=== PATIENT | male | born 1990 | race African-American/Black ===

== ENCOUNTER 2016-11-29 07:27 | Emergency (ER) | payer SELFPAY ==
[~2016-11-29] VITALS: Ht 175.3 cm; Wt 70.0 kg
[~2016-11-29 07:27] MED LIST: BENT20TA PO; ZOFR4TAB3 SL
[2016-11-29 07:28] VITALS: BP 130/82; PULSE 82; RESP 20; TEMP 98.7; O2SAT 100
[2016-11-29] MEDS ORDERED: SODIUM CHLOR 0.9% 1000 ML INJ 1,000 ML IV SCH (07:46)
--- NOTE | 2016-11-29 07:48 | PD ---
HPI Chief Complaint: GI Complaint Time Seen by Provider: 07:46 Travel History International Travel<30 days: No Contact w/Intl Traveler<30days: No Traveled to known affect area: No History of Present Illness HPI This is a 26-year-old male who presents to the emergency department with nausea and vomiting present for moderate severity, worse this morning. He says he vomited 5 times this morning. He says he started to feel tingly in his lips and was worried he might be having a stroke. He denies any abdominal pain, fevers, chills, diarrhea or dysuria. He does say he smokes marijuana every day. He says this is happened to him 3 times in the past year. He did try to take a hot shower this morning that at this point that's not helping anymore. PFSH Past Medical History Hx Anticoagulant Therapy: No Blood Disorders: No Anxiety: No Depression: No Cancer: No Cardiovascular Problems: No Chemotherapy: No Cerebrovascular Accident: No Diabetes: No Diminished Hearing: No Endocrine: No Gastrointestinal Disorders: Yes (chronic stomach problems) GERD: Yes Genitourinary: No Immune Disorder: No Implanted Vascular Access Dvce: No Musculoskeletal: No Neurologic: No Psychiatric: No Reproductive: No Respiratory: No Immunizations Current: Yes Sickle Cell Disease: No Influenza Vaccination: No Past Surgical History Surgical History: No Previous Surgery Other Surgery: No Social History Alcohol Use: No Tobacco Use: No Substance Use: Yes (marijuana) Allergies-Medications (Allergen,Severity, Reaction): Coded Allergies: No Known Allergies (Verified , 11/29/16) Reported Meds & Prescriptions Reported Meds & Active Scripts Active No Active Prescriptions or Reported Medications Review of Systems Except as stated in HPI: all other systems reviewed are Neg Physical Exam Narrative GENERAL:Well appearing, no acute distress SKIN: Focused skin assessment warm and dry. HEAD: Atraumatic. Normocephalic. EYES: Pupils equal and round. No injection or drainage. ENT: Moist mucous membranes NECK: Trachea midline. CARDIOVASCULAR: Regular rate and rhythm. No murmur appreciated. RESPIRATORY: Clear to auscultation. Breath sounds equal bilaterally. GASTROINTESTINAL: Abdomen soft, non-tender, nondistended. MUSCULOSKELETAL: No obvious deformities. NEUROLOGICAL: Awake and alert. No obvious cranial nerve deficits. Moving all extremities. No dysarthria or aphasia. No upper extremity ataxia. Normal visual dimas. PSYCHIATRIC: Appropriate mood and affect; insight and judgment normal. Data Data Last Documented VS Vital Signs Date Time Temp Pulse Resp B/P Pulse Ox O2 Delivery O2 Flow Rate FiO2 11/29/16 07:50 18 99 Room Air 11/29/16 07:28 98.7 82 130/82 Orders Complete Blood Count With Diff (11/29/16 07:46) Comprehensive Metabolic Panel (11/29/16 07:46) Lipase (11/29/16 07:46) Iv Access Insert/Monitor (11/29/16 07:46) Ecg Monitoring (11/29/16 07:46) Oximetry (11/29/16 07:46) Ondansetron Inj (Zofran Inj) (11/29/16 08:00) Sodium Chlor 0.9% 1000 Ml Inj (Ns 1000 M (11/29/16 07:46) Sodium Chloride 0.9% Flush (Ns Flush) (11/29/16 08:00) Labs Laboratory Tests Test 11/29/16 07:00 White Blood Count 14.6 TH/MM3 Red Blood Count 5.69 MIL/MM3 Hemoglobin 15.7 GM/DL Hematocrit 46.1 % Mean Corpuscular Volume 81.0 FL Mean Corpuscular Hemoglobin 27.6 PG Mean Corpuscular Hemoglobin 34.1 % Concent Red Cell Distribution Width 14.4 % Platelet Count 238 TH/MM3 Mean Platelet Volume 8.6 FL Neutrophils (%) (Auto) 59.7 % Lymphocytes (%) (Auto) 27.1 % Monocytes (%) (Auto) 12.4 % Eosinophils (%) (Auto) 0.4 % Basophils (%) (Auto) 0.4 % Neutrophils # (Auto) 8.7 TH/MM3 Lymphocytes # (Auto) 4.0 TH/MM3 Monocytes # (Auto) 1.8 TH/MM3 Eosinophils # (Auto) 0.1 TH/MM3 Basophils # (Auto) 0.1 TH/MM3 CBC Comment DIFF FINAL Differential Comment Sodium Level 134 MEQ/L Potassium Level 3.5 MEQ/L Chloride Level 95 MEQ/L Carbon Dioxide Level 26.8 MEQ/L Anion Gap 12 MEQ/L Blood Urea Nitrogen 15 MG/DL Creatinine 0.98 MG/DL Estimat Glomerular Filtration 113 ML/MIN Rate Random Glucose 110 MG/DL Calcium Level 9.5 MG/DL Total Bilirubin 1.3 MG/DL Aspartate Amino Transf 35 U/L (AST/SGOT) Alanine Aminotransferase 54 U/L (ALT/SGPT) Alkaline Phosphatase 52 U/L Total Protein 8.6 GM/DL Albumin 4.6 GM/DL Lipase 171 U/L MDM Medical Decision Making Medical Screen Exam Complete: Yes Emergency Medical Condition: Yes Interpretation(s) afebrile, no tachycardia, normotensive leukocytosis Total bilirubin is mildly elevated similar to prior Differential Diagnosis Gastroenteritis, cyclic vomiting syndrome, cannabis hyperemesis syndrome, cholelithiasis, cholecystitis, appendicitis Narrative Course This is a 26-year-old male who presents to the emergency department with nausea and vomiting that's been going on for several days. She has no abdominal pain. He is afebrile. He was placed on a monitor and an IV was established. He does have a mild leukocytosis which is similar to labs in the past. He's had CT imaging and ultrasound imaging in the past all of which is been unremarkable. I doubt there is a surgical etiology of his symptoms given he has no abdominal pain. I suspect is cannabis hyperemesis syndrome given he smokes marijuana daily and this is a recurrent problem. Patient feels better after Zofran and IV hydration. He'll be discharged home. Diagnosis Primary Impression: Cannabinoid hyperemesis syndrome Patient Instructions: General Instructions Additional Instructions: If you develop severe or worsening abdominal pain, fever>100.4, persistent vomiting or inability to eat or drink return to the emergency department immediately. Follow up with your primary care physician in 1-2 days for a check-up. Med/Other Pt SpecificInfo: Prescription(s) given Scripts Ondansetron Odt (Zofran Odt)4 Mg Tab4 Mg SL Q6HR PRN (Nausea/Vomiting) #15 TAB Prov:Kourtney Justice MD 11/29/16 Disposition: DISCHARGE HOME Condition: Stable Kourtney Justice MD Nov 29, 2016 07:48
[2016-11-29 07:50] VITALS: RESP 18; O2SAT 99
[2016-11-29] MEDS ORDERED: SODIUM CHLORIDE 0.9% FLUSH 10 ML FLUSH IV FLUSH PRN (08:00)
[2016-11-29] MEDS ORDERED: ONDANSETRON HCL 4 MG/2 ML VIAL IVP ONE (08:00)
[2016-11-29 08:13] LABS: AUTOMATED NEUTROPHIL # 8.7 TH/MM3 (1.8-7.7); BASOPHIL # 0.1 TH/MM3 (0-0.2); BASOPHIL % 0.4 % (0.0-2.0); EOSINOPHIL # 0.1 TH/MM3 (0-0.4); EOSINOPHIL % 0.4 % (0.0-4.0); HEMATOCRIT 46.1 % (39.0-51.0); HEMO FLAGS DIFF FINAL; LYMPH % 27.1 % (9.0-44.0); MEAN CORPUSCULAR HEMOGLOBIN 27.6 PG (27.0-34.0); MEAN CORPUSCULAR HGB CONC 34.1 % (32.0-36.0); MONO % 12.4 % (0.0-8.0); NEUT % 59.7 % (16.0-70.0); PLATELET COUNT 238 TH/MM3 (150-450); RED BLOOD COUNT 5.69 MIL/MM3 (4.50-5.90); RED CELL DISTRIBUTION WIDTH 14.4 % (11.6-17.2); WHITE BLOOD COUNT 14.6 TH/MM3 (4.0-11.0)
[2016-11-29 08:33] LABS: ANION GAP 12 MEQ/L (5-15); AST (GOT) 35 U/L (15-37); BICARBONATE 26.8 MEQ/L (21.0-32.0); BLOOD UREA NITROGEN 15 MG/DL (7-18); CHLORIDE 95 MEQ/L (98-107); GLOMERULAR FILTRATION RATE 113 ML/MIN (>89); POTASSIUM 3.5 MEQ/L (3.5-5.1); SODIUM (NA) 134 MEQ/L (136-145)
[2016-11-29 08:36] LABS: ALKALINE PHOSPHATASE 52 U/L (45-117); ALT (GPT) 54 U/L (12-78); TOTAL BILIRUBIN ADULT 1.3 MG/DL (0.2-1.0)
[2016-11-29] MEDS ORDERED: ZOFR4TAB3 SL (08:50)
[2016-11-29 09:29] VITALS: BP 122/77; TEMP 97.8
== END 2016-11-29 09:15 | disposition home or self-care (01) ==
LOC: NEPC 07:27
DX: R11.10 Vomiting, unspecified (principal)
CPT/HCPCS: 80053; 83690; 85025; 96361; 96374; 99284; J2405; J7030

== ENCOUNTER 2017-10-24 11:34 | Inpatient (IN) | payer OTHER ==
[~2017-10-24 11:34] MED LIST changes: -BENT20TA PO
[2017-10-24] MEDS ORDERED: PROPOFOL 200 MG/20 ML AMP IV ONE (12:00)
[2017-10-24] MEDS ORDERED: ePHEDrine/NS 25 MG/5 ML SYRINGE IV ONE (12:00)
[2017-10-24] MEDS ORDERED: LIDOCAINE HCL 1% PF 5 ML SYRINGE OTHER ONE (12:00)
[2017-10-24] MEDS ORDERED: ONDANSETRON HCL 4 MG/2 ML VIAL IV ONE (12:00)
[2017-10-24] MEDS ORDERED: DEXAMETHASONE SOD PHOS 4 MG/ML VIAL IV ONE (12:00)
[2017-10-24 12:16] VITALS: BP 135/65; PULSE 82; RESP 16; TEMP 98.5; O2SAT 99
[2017-10-24] MEDS ORDERED: IBUPROFEN 800 MG TAB PO ONE (12:45)
[2017-10-24] MEDS ORDERED: ACETAMINOPHEN/HYDROcodone 325 MG/5 MG TAB PO ONE (12:45)
--- NOTE | 2017-10-24 12:45 | PD ---
HPI Chief Complaint: Injury Time Seen by Provider: 12:36 Travel History International Travel<30 days: No Contact w/Intl Traveler<30days: No Traveled to known affect area: No History of Present Illness HPI Patient comes emergency department complaining of puncture wound that occurred shortly prior to arrival. 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 Patient denies doing anything for this prior to coming to the emergency department. Patient describe burning throbbing pain around site of the puncture wound without radiation. He denies any numbness or tingling. Pain is worse palpation trying to walk. Denies anything making the pain better. Patient reports he drank a bottle Gatorade prior to coming to the emergency department. Denies eating or drinking anything else today. PFSH Past Medical History Hx Anticoagulant Therapy: No Blood Disorders: No Anxiety: No Depression: No Cancer: No Cardiovascular Problems: No Chemotherapy: No Cerebrovascular Accident: No Diabetes: No Diminished Hearing: No Endocrine: No Gastrointestinal Disorders: Yes (chronic stomach problems) GERD: Yes Genitourinary: No Immune Disorder: No Implanted Vascular Access Dvce: No Musculoskeletal: No Neurologic: No Psychiatric: No Reproductive: No Respiratory: No Immunizations Current: Yes Sickle Cell Disease: No Past Surgical History Other Surgery: No Social History Alcohol Use: No Tobacco Use: No Substance Use: Yes (marijuana) Allergies-Medications (Allergen,Severity, Reaction): Coded Allergies: No Known Allergies (Verified , 11/29/16) Reported Meds & Prescriptions Reported Meds & Active Scripts Active Zofran Odt (Ondansetron Odt) 4 Mg Tab 4 Mg SL Q6HR PRN Review of Systems Except as stated in HPI: all other systems reviewed are Neg Physical Exam Narrative GENERAL: Well-developed, well nourished, in no acute distress, and non-ill appearing. SKIN: Patient has a 2 cm x 1 cm puncture wound is approximately half centimeter in depth over the left anterior tibia approximately mid shaft. It is tender to palpation. No crepitus. HEAD: Atraumatic. Normocephalic. EYES: Pupils equal and round. EOMI. No scleral icterus. No injection or drainage. ENT: No nasal bleeding or discharge. Mucous membranes pink and moist. NECK: Trachea midline. Supple. No nuclear rigidity. CARDIOVASCULAR: Regular rate and rhythm. No murmur appreciated. Dorsal pulses 2+, intact, equal bilaterally. Capillary refill less than 2 seconds. RESPIRATORY: No accessory muscle use. No respiratory distress. Clear to auscultation. Breath sounds equal bilaterally. MUSCULOSKELETAL: No obvious deformities. No clubbing. No cyanosis. No edema. Full range of motion. Ankle: Neagative anterior draw and Lopez test. Negative Mahad's sign. No laxity noted with passive inversion and eversion of BL ankles. Negative squeeze test. Pulses equal BL distal to injury. Capillary refill less than 2 seconds distal to injury and equal BL. Sensation equal BL 1st web space. FROM of toes distal to injury and equal BL. NV intact distal to injury and equal BL. Dorsal pulses equal BL. NEUROLOGICAL: Awake and alert. No obvious cranial nerve deficits. Motor grossly within normal limits. Normal speech. PSYCHIATRIC: Appropriate mood and affect; insight and judgment normal. Data Data Last Documented VS Vital Signs Date Time Temp Pulse Resp B/P (MAP) Pulse Ox O2 Delivery O2 Flow Rate FiO2 10/24/17 12:16 98.5 82 16 135/65 (88) 99 Orders Orders Tibia/Fibula (Ap/Lat) (10/24/17 ) Ibuprofen (Motrin) (10/24/17 12:45) Acetamin-Hydrocod 325-5 Mg ([place] 5-325 (10/24/17 12:45) Basic Metabolic Panel (Bmp) (10/24/17 13:09) Complete Blood Count With Diff (10/24/17 13:09) Iv Access Insert/Monitor (10/24/17 13:09) Ecg Monitoring (10/24/17 13:09) Oximetry (10/24/17 13:09) Sodium Chloride 0.9% Flush (Ns Flush) (10/24/17 13:15) Cefazolin 2 Gm Premix (Ancef 2 Gm Premix (10/24/17 13:15) Admit Order (Ed Use Only) (10/24/17 ) Vital Signs (Adult) Q4H (10/24/17 13:25) Diet Npo (10/24/17 Lunch) Activity Bed Rest (10/24/17 13:25) Notify Dr: Other (10/24/17 13:25) [facility] Medical Decision Making Medical Screen Exam Complete: Yes Emergency Medical Condition: Yes Interpretation(s) Last Impressions Tibia/Fibula X-Ray 10/24/17 0000 Signed Impressions: Service Date/Time: October 12:52 - CONCLUSION: Nondisplaced fracture through the distal mid diaphysis of the tibia. Getachew Wisdom MD Differential Diagnosis Fracture, sprain, dislocation, foreign body, puncture wound Narrative Course Patient was seen and examined. Patient is given Lortab for pain. X-rays were ordered. Upon reviewing x-ray initial laboratory studies were ordered and patient was given 2 g of Ancef IV. A call was placed to orthopedic. Discussed patient with orthopedics, who is agreeable to admit the patient for surgery later today. Discussed patient with Dr. Lyle, who is in agreement with plan of care and disposition. Discussed all findings and plan of care with patient is agreeable for admission. Patient was placed in this splint and dressing was placed by the it technical support specialist. Physician Communication Physician Communication [phone] Canales, orthopedic on-call, who recommends a patient admitted to his service for surgery later today. Diagnosis Primary Impression: Open tibial fracture Qualified Codes: S82.225C - Nondisplaced transverse fracture of shaft of left tibia, initial encounter for open fracture type IIIA, IIIB, or IIIC Admitting Information Admitting Physician Requests: Admit Condition: Stable Phi Nascimento Oct 24, 2017 12:45
[2017-10-24] MEDS ORDERED: SODIUM CHLORIDE 0.9% FLUSH 10 ML FLUSH IV FLUSH PRN ×2 (13:15→18:30)
[2017-10-24] MEDS ORDERED: ceFAZolin 2 GM PREMIX 50 ML IV ONE (13:15)
--- NOTE | 2017-10-24 13:25 | RADRPT ---
EXAM DATE/TIME: 10/24/2017 12:52 [facility] COMPARISON: No previous studies available for comparison. INDICATIONS : Left lower leg hit with a piece of steel rebar at job site this morning. Pain approximately mid way between knee and ankle MEDICAL HISTORY : None. SURGICAL HISTORY : None. ENCOUNTER: Initial ACUITY: 1 day PAIN SCORE: 10/10 LOCATION: Left tib/fib FINDINGS: Two view examination of the left tibia demonstrates a complex but nondisplaced fracture through the d istal mid diaphysis of the tibia. CONCLUSION: Nondisplaced fracture through the distal mid diaphysis of the tibia. Getachew Wisdom MD on October 24, 2017 at 13:22 Board Certified Radiologist. This report was verified electronically.
[2017-10-24 13:41] LABS: AUTOMATED NEUTROPHIL # 7.3 TH/MM3 (1.8-7.7); BASOPHIL % 0.3 % (0.0-2.0); EOSINOPHIL # 0.1 TH/MM3 (0-0.4); EOSINOPHIL % 0.6 % (0.0-4.0); HEMATOCRIT 44.2 % (39.0-51.0); HEMOGLOBIN 15.8 GM/DL (13.0-17.0); LYMPH % 15.5 % (9.0-44.0); LYMPHOCYTE # 1.5 TH/MM3 (1.0-4.8); MEAN CELL VOLUME 83.3 FL (80.0-100.0); MEAN CORPUSCULAR HEMOGLOBIN 29.8 PG (27.0-34.0); MEAN CORPUSCULAR HGB CONC 35.8 % (32.0-36.0); MEAN PLATELET VOLUME 8.4 FL (7.0-11.0); MONO % 8.7 % (0.0-8.0); MONOCYTE # 0.8 TH/MM3 (0-0.9); NEUT % 74.9 % (16.0-70.0); PLATELET COUNT 196 TH/MM3 (150-450); RED CELL DISTRIBUTION WIDTH 14.6 % (11.6-17.2); WHITE BLOOD COUNT 9.7 TH/MM3 (4.0-11.0)
[2017-10-24 14:56] VITALS: BP 155/66; PULSE 74; RESP 18; O2SAT 99
[2017-10-24 17:31] LABS: BICARBONATE 25.2 MEQ/L (21.0-32.0); CALCIUM 8.7 MG/DL (8.5-10.1); CREATININE 0.93 MG/DL (0.60-1.30)
[2017-10-24] MEDS ORDERED: GENTAMICIN SULFATE 80 MG/2 ML VIAL ONE (18:04)
--- NOTE | 2017-10-24 18:27 | HHI.HP ---
HPI Service [facility] Primary Care Physician No Primary Care Physician Admission Diagnosis Open tibia fracture Diagnoses: Chief Complaint: Open left tibia fracture Travel History International Travel<30 Days: No Contact w/Intl Traveler <30 Da: No Traveled to Known Affected Are: No History of Present Illness see dictation Past Family Social History Allergies: Coded Allergies: No Known Allergies (Verified Adverse Reaction, Unknown, 10/24/17) Active Ordered Medications Current Medications Medications (Trade) Dose Ordered Sig/Renetta Route Start Time Stop Time Status Last Admin (NS Flush) 2 ml UNSCH PRN IV FLUSH 10/24/17 13:15 Reported Meds & Active Scripts Active No Active Prescriptions or Reported Medications Physical Exam Vital Signs Vital Signs Date Time Temp Pulse Resp B/P (MAP) Pulse Ox O2 Delivery O2 Flow Rate FiO2 10/24/17 18:12 10/24/17 14:56 74 18 155/66 (95) 99 Room Air 10/24/17 14:00 18 10/24/17 14:00 18 10/24/17 12:16 98.5 82 16 135/65 (88) 99 Laboratory Laboratory Tests Test 10/24/17 13:30 10/24/17 16:20 White Blood Count 9.7 Red Blood Count 5.30 Hemoglobin 15.8 Hematocrit 44.2 Mean Corpuscular Volume 83.3 Mean Corpuscular Hemoglobin 29.8 Mean Corpuscular Hemoglobin Concent 35.8 Red Cell Distribution Width 14.6 Platelet Count 196 Mean Platelet Volume 8.4 Neutrophils (%) (Auto) 74.9 Lymphocytes (%) (Auto) 15.5 Monocytes (%) (Auto) 8.7 Eosinophils (%) (Auto) 0.6 Basophils (%) (Auto) 0.3 Neutrophils # (Auto) 7.3 Lymphocytes # (Auto) 1.5 Monocytes # (Auto) 0.8 Eosinophils # (Auto) 0.1 Basophils # (Auto) 0.0 CBC Comment DIFF FINAL Differential Comment Blood Urea Nitrogen 7 Creatinine 0.93 Random Glucose 74 Calcium Level 8.7 Sodium Level 139 Potassium Level 4.2 Chloride Level 104 Carbon Dioxide Level 25.2 Anion Gap 10 Estimat Glomerular Filtration Rate 119 Result Diagram: 3/8/18 1330 10/24/17 1620 Caprini VTE Risk Assessment Caprini VTE Risk Assessment: No/Low Risk (score <= 1) VTE [facility] Contraindication: LE injury/wound Caprini Risk Assessment Model Point Value = 1 Point Value = 2 Point Value = 3 Point Value = 5 Age 41-60 Minor surgery BMI > 25 kg/m2 Swollen legs Varicose veins or History of unexplained or recurrent spontaneous Oral contraceptives or hormone replacement Sepsis (< 1 month) Serious lung disease, including pneumonia (< 1 month) Abnormal pulmonary function Acute myocardial infarction Congestive heart failure (< 1 month) History of inflammatory bowel disease Medical patient at bed rest Age 61-74 Arthroscopic surgery Major open surgery (> 45 min) Laparoscopic surgery (> 45 min) Malignancy Confined to bed (> 72 hours) Immobilizing plaster cast Central venous access Age >= 75 History of VTE Family history of VTE Factor V Leiden Prothrombin [id number] Lupus anticoagulant Anticardiolipin antibodies Elevated serum homocysteine Heparin-induced thrombocytopenia Other congenital or acquired thrombophilia Stroke (< 1 month) Elective arthroplasty Hip, pelvis, or leg fracture Acute spinal cord injury (< 1 month) Prophylaxis Regimen Total Risk Factor Score Risk Level Prophylaxis Regimen 0-1 Low Early ambulation 2 Moderate Order ONE of the following: *Sequential Compression Device (SCD) *Heparin 5000 units SQ BID 3-4 Higher Order ONE of the following medications: *Heparin 5000 units SQ TID *Enoxaparin/Lovenox 40 mg SQ daily (WT < 150 kg, CrCl > 30 mL/min) *Enoxaparin/Lovenox 30 mg SQ daily (WT < 150 kg, CrCl > 10-29 mL/min) *Enoxaparin/Lovenox 30 mg SQ BID (WT < 150 kg, CrCl > 30 mL/min) AND/OR *Sequential Compression Device (SCD) 5 or more Highest Order ONE of the following medications: *Heparin 5000 units SQ TID (Preferred with Epidurals) *Enoxaparin/Lovenox 40 mg SQ daily (WT < 150 kg, CrCl > 30 mL/min) *Enoxaparin/Lovenox 30 mg SQ daily (WT < 150 kg, CrCl > 10-29 mL/min) *Enoxaparin/Lovenox 30 mg SQ BID (WT < 150 kg, CrCl > 30 mL/min) AND *Sequential Compression Device (SCD) Assessment & Plan Problem List: (1) Open tibial fracture ICD Codes: S82.209B - Unspecified fracture of shaft of unspecified tibia, initial encounter for open fracture type I or II Status: Acute Qualifiers: Qualified Codes: S82.255B - Nondisplaced comminuted fracture of shaft of left tibia, initial encounter for open fracture type I or II Assessment and Plan Options discussed Recommend Irrigation and Debridement and ORIF Informed consent obtained Onel Canales MD Oct 24, 2017 18:27
[2017-10-24] MEDS ORDERED: diphenhydrAMINE HCL 25 MG CAP PO PRN (18:30)
[2017-10-24] MEDS ORDERED: BISACODYL 10 MG SUPP RECTAL PRN (18:30)
[2017-10-24] MEDS ORDERED: SENNOSIDES 8.6 MG TAB PO PRN (18:30)
[2017-10-24] MEDS ORDERED: NALOXONE HCL 0.4 MG/ML AMP IV PUSH PRN ×2 (18:30→20:45)
[2017-10-24] MEDS ORDERED: Post-op Orders (for Pharmacy) XX ONE ×3 (18:30→18:45)
[2017-10-24] MEDS ORDERED: LACTULOSE SYRUP 20 GM/30 ML CUP PO PRN (18:30)
[2017-10-24] MEDS ORDERED: MAGNESIUM HYDROXIDE SUSP 30 ML CUP PO PRN (18:30)
[2017-10-24] MEDS ORDERED: oxyCODONE/ACETAMINOPHEN 5 MG/325 MG TAB PO PRN (18:45)
[2017-10-24] MEDS ORDERED: ACETAMINOPHEN 325 MG TAB PO PRN (18:45)
[2017-10-24] MEDS ORDERED: MISCELLANEOUS NURSING INFORMATION XX PRN (18:45)
[2017-10-24] MEDS ORDERED: ACETAMINOPHEN 1000 MG/100 ML 100 ML IV ONE (18:48)
[2017-10-24] MEDS ORDERED: VANCOMYCIN HCL 1000 MG VIAL ONE (18:48)
--- NOTE | 2017-10-24 19:28 | MH ---
cc: Onel Canales MD, James M MD DATE OF ADMISSION: 10/24/2017 ADMISSION DIAGNOSIS: Open left tibia fracture. 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 He states that he was breaking up concrete and a tension cable snapped causing what he believed to be rebar to puncture his left anterior leg resulting in immediate pain and inability to bear weight. He was brought to [facility] where workup with plain x-rays revealed comminuted mid shaft tibia fracture with mild displacement and mild angulation. He was initiated with IV antibiotics and his wound was cleaned. He denied any other injury. PAST MEDICAL HISTORY: Significant for problems with acid reflux in the past where he took over the counter medications, but he no longer requires that. He states that he has never had surgery and that he is a healthy individual. He does not take any supplements. MEDICATIONS: None. ALLERGIES: NO KNOWN DRUG ALLERGIES. SOCIAL HISTORY: , denies alcohol and tobacco use. Apparently does use marijuana occasionally. Works in construction. PHYSICAL EXAMINATION: GENERAL: The patient is evaluated with a nurse at the bedside and with his at the bedside. He is alert and appropriate. HEENT: Head is atraumatic, normocephalic. His extraocular muscles are intact. His mucous membranes are pink and moist. NECK: Supple. No masses. LUNGS: Clear to auscultation bilaterally. HEART: Regular rate and rhythm without murmur. ABDOMEN: Soft, nontender, nondistended with positive bowel sounds. EXTREMITIES: Upper extremities benign. Right lower extremity benign. Left lower extremity has a splint in place, dressing in place. He flexes and extends his toes. Light sensation is intact. Capillary refill is good. Unable to feel his pulse as it is under the splint. IMAGING STUDIES X-rays reviewed, left tib-fib shows comminution mid shaft tibia fracture with mild malalignment. ASSESSMENT: Open left tibia fracture with comminution. MEDICAL DECISION MAKING: His condition was discussed and the options of treatment were discussed. With open fractures, usual course of treatment is to wash the fracture out to decrease the chance of infection. There remains a long-term chance of infection and explained that to the patient. The ER physician told me it was about a 2 cm wound and he describes it as 2 x 1 cm puncture wound. Therefore, it is unclear to me at this point whether or not there is tissue deficit. I explained to the patient that normally we would like to close this and there is also the possibility of using a vacuum-assisted closure device. In regards to stabilization of the bone, there are external means like a cast or external fixator and there are internal means like plates and intramedullary rodding. The most common fixation for this type of comminuted fracture is an intramedullary maddy and that would be my tentative plan with surgical intervention. At the same time, when we wash this out then we place intramedullary maddy and then also possibly place a vacuum assisted closure device. The patient will probably require admission to the hospital for 2-3 midnights for pain management control and initiation of therapy and to give him IV antibiotics to decrease the chance of infection. If we do place a vacuum assisted closure device then we may need repeat surgical intervention. I explained to the patient there is inherent risk with surgical intervention. There is risk of infection, nerve damage, blood vessel damage, possible need for blood transfusion, possibility of transfusion reaction, possibility of comminution further of the fracture, displacement of the fracture, need for revision surgery, long-term possible need for hardware removal, possibility of anesthetic complication, medical complications and unforeseen possible complications. All of his questions were answered. detailed informed consent was obtained. MD LEIDA Rebollar//derik , 06:22 PM , 06:57 PM
[2017-10-24] MEDS ORDERED: MIDAZOLAM HCL 2 MG/2 ML VIAL ONE (19:59)
[2017-10-24] MEDS: D5-1/2 NS + KCL 20 MEQ INJ 1,000 ML IV SCH (20:00)
[2017-10-24] MEDS ORDERED: *MEPERIDINE 25 MG INJ VIAL PERIprocedural Use ONLY ONE (20:00)
[2017-10-24] MEDS: SODIUM CHLORIDE 0.9% FLUSH 10 ML FLUSH IV FLUSH SCH (20:07)
[2017-10-24] MEDS: DOCUSATE SODIUM 50 MG/SENNA 8.6 MG TAB PO SCH (20:07)
--- NOTE | 2017-10-24 20:10 | RADRPT ---
EXAM DATE/TIME: 10/24/2017 19:15 [facility] COMPARISON: TIBIA/FIBULA LEFT (AP/LAT), October 24, 2017, 12:52. INDICATIONS : Open reduction internal fixation left tibia. MEDICAL HISTORY : None. SURGICAL HISTORY : None. ENCOUNTER: Initial ACUITY: 1 day PAIN SCORE: Non-responsive. LOCATION: Left Tibia. FINDINGS: 7 images were recorded digitally in the operating room using C-arm during placement of a intramedulla ry maddy in the tibia stop solitary proximal and 2 distal intercalated screws are present. CONCLUSION: Intraoperative images. Humphrey Tovar MD on October 24, 2017 at 20:08 Board Certified Radiologist. This report was verified electronically.
[2017-10-24] MEDS ORDERED: *morphine SULFATE 10 MG/ML PERIprocedure ONLY ONE (20:30)
[2017-10-24] MEDS ORDERED: MORPHINE SULFATE 30 MG/30 ML PCA ONE (20:45)
[2017-10-24] MEDS ORDERED: MORPHINE SULFATE 30 MG/30 ML PCA IV SCH (20:45)
[2017-10-24] MEDS ORDERED: DO NOT ADM ANY ANTICOAGULANT DRUGS PRN (20:45)
[2017-10-24] MEDS ORDERED: PCA - TOTAL MG MORPHINE DELIVERED PER SHIFT SCH ×3 (22:00)
[2017-10-24] MEDS: PCA - TOTAL MG MORPHINE DELIVERED PER SHIFT SCH (22:00)
[2017-10-24 22:25] VITALS: BP 126/70; PULSE 73; RESP 16; TEMP 98; O2SAT 100
--- NOTE | 2017-10-24 22:46 | MP ---
cc: Onel Canales MD DATE OF OPERATION: 10/24/2017 PREOPERATIVE DIAGNOSIS: Left tibial shaft grade II open fracture with comminuted tibia. POSTOPERATIVE DIAGNOSIS: Left tibial shaft grade II open fracture with comminuted tibia. PROCEDURE: 1. Left tibia irrigation and debridement of open fracture. 2. Left tibia open reduction and internal fixation using a Synthes 11 mm x 360 mm locking screw with 2 distal screws and 1 proximal dynamic screw. ANESTHETIC: General. SURGEON: Onel Canales MD HAND COMPOSITOR SURGEON: RAJNI Hannah ESTIMATED BLOOD LOSS: 100 mL. DRAINS: None. SPECIMEN: Fragments discarded. COMPLICATIONS: None known. INDICATIONS: Felipe Forrest is a 27-year-old male who sustained a work related injury to his left lower extremity earlier today 10/24/2017. He described breaking up some concrete and having a piece of rebar snap and hit him in the front of his mid left leg. This created an open wound which was approximately 3 cm in length and widened by 1.5 cm. He underwent provisional washout in the emergency room and was initiated with IV antibiotics at that time. The x-rays revealed a comminuted fracture and the recommendation was to proceed with irrigation and debridement in the operating room and operative stabilization of the fracture with intramedullary maddy. His condition was discussed with the patient and the options of treatment including the option of open irrigation and debridement followed by fixation by external methods like a cast. It is believed however, that surgical stabilization should allow him to rehabilitate at a faster pace and he should be able to be weightbearing as tolerated following the surgery and this ultimately should give him a better result than cast methodology which would put him at a higher risk for the bone shifting and a significant delayed recovery. The risks, benefits and alternatives were thoroughly discussed. All of his questions were answered. Detailed informed consent was obtained. The patient assistant is an advanced registered nurse practitioner and his skill set is medically necessary for the performance of the operation. DESCRIPTION OF PROCEDURE: The patient is brought into the operating room and he is placed under general anesthetic. The left lower extremity is draped and prepped in the usual sterile fashion. Additional IV antibiotics were given. Time out is completed. We proceeded with antibiotic irrigation, thoroughly cleaning the wound and then further inspecting and curetting the fracture site and removing some small fragments of bone, trimming away some devascularized tissue. The wound size was approximately 3 cm x 1.5 cm. There was periosteal stripping approximately the same amount about 3 cm x 1.5 cm. No gross debris within the wound. After thorough irrigation and cleaning, we then proceeded to evaluate fluoroscopically, fine tuned the fracture reduction and then proceeded with proximal approach along the medial edge of the patellar tendon and then proceeded to make a starting hole and then place a beaded guidewire down the fracture, across the fracture site and into the distal tibia and then sequential reaming, 9 mm, 10 mm, 11 mm, 12 mm. Very good chatter with 12 mm. We selected 11 mm diameter x 360 mm. This was then impacted into position and found to be in good position AP and lateral plane. The fracture alignment looked good and a proximal locking screw was placed and then we placed the knee in full extension and then placed the C-arm so that we could place 2 distal screws using the perfect northway technique. The proximal screw was placed in a dynamic screw hole so that weightbearing would allow for compression of the fracture site. After this was completed we obtained hard copy AP and lateral final x-rays for the PACS. We then went back and irrigated another 1000 antibiotic irrigation of the fracture site as well as the surgical site and then proceeded to close with absorbable sutures and then mary on the skin. We placed sterile dressing and Collin wrap from foot to thigh. The patient was awoken and returned to the recovery room in stable condition. MD LEIDA Rebollar/ , 08:14 PM , 10:44 PM
[2017-10-25] VITALS: BP 119/62; PULSE 73; RESP 16; TEMP 97.7; O2SAT 98
[2017-10-25] MEDS: ceFAZolin 2 GM PREMIX 50 ML IV SCH ×3 (03:02→17:35)
[2017-10-25 04:00] VITALS: BP 123/72; PULSE 75; RESP 16; TEMP 97.2; O2SAT 95
[2017-10-25] MEDS: PCA - TOTAL MG MORPHINE DELIVERED PER SHIFT SCH ×3 (05:28→22:00)
[2017-10-25] MEDS: VANCOMYCIN INJ 1,000 MG in SODIUM CHLOR 0.9% 250 ML INJ 250 ML IV SCH ×2 (05:28→17:35)
[2017-10-25] MEDS: D5-1/2 NS + KCL 20 MEQ INJ 1,000 ML IV SCH ×2 (05:37→16:00)
[2017-10-25 08:00] VITALS: BP 133/79; PULSE 80; RESP 18; TEMP 97.7; O2SAT 18
[2017-10-25] MEDS: SODIUM CHLORIDE 0.9% FLUSH 10 ML FLUSH IV FLUSH SCH ×2 (08:44→20:28)
[2017-10-25] MEDS: DOCUSATE SODIUM 50 MG/SENNA 8.6 MG TAB PO SCH ×2 (08:44→20:28)
[2017-10-25 12:00] VITALS: BP 152/74; PULSE 97; RESP 18; TEMP 98.7; O2SAT 99
[2017-10-25 16:00] VITALS: BP 145/79; PULSE 98; RESP 18; TEMP 99.4; O2SAT 98
[2017-10-25] MEDS: oxyCODONE/ACETAMINOPHEN 5 MG/325 MG TAB PO PRN ×2 (17:35→23:42)
[2017-10-25] MEDS ORDERED: ENOXAPARIN SODIUM 40 MG/0.4 ML SYRINGE SQ SCH (18:45)
[2017-10-25 20:00] VITALS: BP 113/56; PULSE 87; RESP 18; TEMP 98.6; O2SAT 98
[2017-10-25] MEDS ORDERED: OXYC1TAB63 PO (20:36)
[2017-10-25] MEDS ORDERED: CRUTMIS25 (20:39)
--- NOTE | 2017-10-25 21:20 | PD.ORT.PN ---
Subjective Subjective Remarks Patient comfortable Objective Vitals Vital Signs Date Time Temp Pulse Resp B/P (MAP) Pulse Ox O2 Delivery O2 Flow Rate FiO2 10/25/17 20:00 98.6 87 18 113/56 (75) 98 10/25/17 16:00 99.4 98 18 145/79 (101) 98 10/25/17 12:00 98.7 97 18 152/74 (100) 99 10/25/17 08:00 97.7 80 18 133/79 (97) 18 10/25/17 05:28 18 10/25/17 04:00 97.2 75 16 123/72 (89) 95 10/25/17 00:00 97.7 73 16 119/62 (81) 98 10/24/17 22:25 98.0 73 16 126/70 (88) 100 10/24/17 22:00 18 10/24/17 21:45 90 20 127/79 (95) 99 Room Air 10/24/17 21:30 88 18 130/70 (90) 98 Room Air 10/24/17 21:15 87 16 129/62 (84) 99 Room Air I/O 10/24/17 10/24/17 10/24/17 10/25/17 10/25/17 10/25/17 07:00 15:00 23:00 07:00 15:00 23:00 Intake Total 850 ml 930 ml 600 ml Output Total 100 ml Balance 750 ml 930 ml 600 ml Intake Oral 0 ml 600 ml IV Total 930 ml Other 850 ml Output Urine Total 0 ml Stool Total 0 ml Estimated Blood Loss 100 ml # Voids 3 Result Diagram: 10/24/17 1330 10/24/17 1620 Objective Remarks Left lower extremity tristan wraps in place negative delma toes neuro intact vascular intact Assessment & Plan Problem List: (1) Open tibial fracture ICD Codes: S82.209B - Unspecified fracture of shaft of unspecified tibia, initial encounter for open fracture type I or II Status: Acute Qualifiers: Qualified Codes: S82.255B - Nondisplaced comminuted fracture of shaft of left tibia, initial encounter for open fracture type I or II Plan: Weight bearing as tolerated with physical therapy Lovenox while in hospital only SCDs while in hospital Po pain meds wrote script for percocet, but this will need to be changed to tylenol #3 D/C home Saturday/Saturday or Saturday F/U in office in 2 weeks Assessment and Plan Options discussed Recommend Irrigation and Debridement and ORIF Informed consent obtained Onel Canales MD Oct 25, 2017 21:20
[2017-10-26 00:04] VITALS: BP 122/69; PULSE 80; RESP 18; TEMP 98.7; O2SAT 100
[2017-10-26] MEDS: ceFAZolin 2 GM PREMIX 50 ML IV SCH ×2 (01:54→09:50)
[2017-10-26] MEDS: D5-1/2 NS + KCL 20 MEQ INJ 1,000 ML IV SCH ×2 (01:57→11:47)
[2017-10-26] MEDS: oxyCODONE/ACETAMINOPHEN 5 MG/325 MG TAB PO PRN ×2 (05:52→09:50)
[2017-10-26] MEDS: VANCOMYCIN INJ 1,000 MG in SODIUM CHLOR 0.9% 250 ML INJ 250 ML IV SCH (05:53)
[2017-10-26] MEDS: PCA - TOTAL MG MORPHINE DELIVERED PER SHIFT SCH (06:00)
--- NOTE | 2017-10-26 07:01 | PD.ORT.PN ---
Subjective Subjective Remarks Moderate left leg pain. No new complaints. Questions about discharge as he is at [facility]. Denies new CP or SOB. Objective Vitals Vital Signs Date Time Temp Pulse Resp B/P (MAP) Pulse Ox O2 Delivery O2 Flow Rate FiO2 10/26/17 00:04 98.7 80 18 122/69 (86) 100 10/25/17 22:00 18 10/25/17 20:00 98.6 87 18 113/56 (75) 98 10/25/17 16:00 99.4 98 18 145/79 (101) 98 10/25/17 12:00 98.7 97 18 152/74 (100) 99 10/25/17 08:00 97.7 80 18 133/79 (97) 18 I/O 10/25/17 10/25/17 10/25/17 10/26/17 10/26/17 10/26/17 07:00 15:00 23:00 07:00 15:00 23:00 Intake Total 930 ml 600 ml 730 ml 1290 ml Output Total 600 ml Balance 930 ml 600 ml 130 ml 1290 ml Intake Oral 600 ml 480 ml 240 ml IV Total 930 ml 250 ml 1050 ml Output Urine Total 600 ml # Voids 3 1 # Bowel Movements 1 0 Result Diagram: 10/24/17 1330 10/24/17 1620 Objective Remarks Laying in bed NAD VSS Left lower extremity Collin wraps in place, no new drainage, some swelling and warmth, no erythema Negative delma distal, +NVI, wiggles toes freely, sensation intact - Seen and evaluated by Dr. Nisa Sandoval Assessment & Plan Ortho Post Op Day #: 2 Problem List: (1) Open tibial fracture ICD Codes: S82.209B - Unspecified fracture of shaft of unspecified tibia, initial encounter for open fracture type I or II Status: Acute Qualifiers: Qualified Codes: S82.255B - Nondisplaced comminuted fracture of shaft of left tibia, initial encounter for open fracture type I or II Plan: Weight bearing as tolerated with physical therapy Lovenox while in hospital only SCDs while in hospital Po pain meds wrote script for percocet, but this will need to be changed to tylenol #3 D/C home Saturday/Saturday or Saturday F/U in office in 2 weeks Assessment and Plan pod#2 s/p I&D, IM nail left tibia Ortho stable. Pain moderately controlled. On percocet. Dr. Canales indicates changing to tylenol#3 at discharge per rules at [facility]. PT - WBAT LLE w gait aid. Collin wraps / dressing changes as ordered. Lovenox for anticoagulation. Consider discharge home w [facility] today if stable and if discharge is set up. F/U w Dr. Canales outpatient. Kalani Espitia Oct 26, 2017 07:01
--- NOTE | 2017-10-26 07:04 | HHI.FF ---
Face to Face Verification Diagnosis: (1) Open tibial fracture Physical Therapy Gait training, Safety evaluation, Transfer training, bed to chair Left LE Weight Bearing: WB as tolerated Additional Instructions PT 3 days/wk for 2 weeks. WBAT Left LE. Walker for assist if needed. Ice operative site bid. Nursing RN Days per Week: 7 x Week(s): 2 Dressing Changes: Daily dressing change Additional Instructions Dry dressing changes daily. Clean w etoh. I have seen patient Felipe Cuellarjolene Forrest Jr on 10/26/17. My clinical findings support the need for the requested home health care services because: Limited ability to care for self High risk of falls I certify that my clinical findings support that this patient is homebound because: Post-op weakness Unsteady gait/balance Kalani Espitia Oct 26, 2017 07:04
[2017-10-26 08:00] VITALS: BP 108/62; PULSE 74; RESP 18; TEMP 98; O2SAT 98
[2017-10-26] MEDS ORDERED: TYLETAB34 PO ×4 (09:20→11:06)
[2017-10-26] MEDS ORDERED: ENOX40IN SQ ×4 (09:21→11:06)
[2017-10-26] MEDS: DOCUSATE SODIUM 50 MG/SENNA 8.6 MG TAB PO SCH (09:49)
[2017-10-26] MEDS: SODIUM CHLORIDE 0.9% FLUSH 10 ML FLUSH IV FLUSH SCH (09:50)
--- NOTE | 2017-10-27 11:45 | MD ---
cc: Onel Canales MD DATE OF DISCHARGE: 10/26/2017 ADMITTING DIAGNOSIS: Open left tibia shaft fracture, grade II, comminuted. PROCEDURES PERFORMED: Irrigation and bony debridement of open fracture and open reduction, internal fixation with intramedullary maddy. HISTORY OF PRESENT ILLNESS: Felipe Forrest is a 27-year-old male who sustained an injury to his left lower extremity while at work on 10/24/2017. He describes a tension table snapping which resulted in rebar puncturing his anterior medial leg, resulting in having pain, a significant wound, and inability to bear weight. He was brought to [facility], where x-rays revealed this to be a comminuted open fracture. Patient was initiated with antibiotics and he was otherwise stable. There was no contraindication to surgical intervention. His hemoglobin, CBC, and chemistries were all acceptable and he was brought to surgery in urgent fashion with antibiotic irrigation and bony debridement of the fracture site being performed, followed by open reduction, internal fixation with intramedullary maddy. The open wound was approximately 3 x 1.5 cm and it was amenable to primary closure and he was maintained on 2 days of IV antibiotics and was transitioned off of IV pain medicines to p.o. pain medicines. He was initiated with physical therapy, weightbearing as tolerated. He was started on dressing changes on postop day #2, clinically making improvement. He was discharged to the [facility] with instructions to follow up in the office, instructions to continue daily alcohol cleaning during dressings to the wound. Our plan is to follow up in 1-1/2 weeks. The patient is tolerating a regular diet. Onel Canales MD JMB/TI , 10:15 AM , 11:44 AM
== END 2017-10-26 13:03 | disposition short-term general hospital (02) | DRG 494 ==
LOC: NEPK 11:34 → NEDA 13:27 → N06A 22:17
PROVIDERS: ADMIT Orthopaedic Surgery Sports Medicine; ATTEND Orthopaedic Surgery Sports Medicine
PROC: 0QSH06Z Reposition Left Tibia with Intramedullary Internal Fixation Device, Open Approach (ICD-10-PCS; principal; 2017-10-24 18:10)
DX: S82.252B Displaced comminuted fracture of shaft of left tibia, initial encounter for open fracture type I or II (principal); K21.9 Gastro-esophageal reflux disease without esophagitis; F12.90 Cannabis use, unspecified, uncomplicated; W31.82XA Contact with other commercial machinery, initial encounter; Y92.61 Building [any] under construction as the place of occurrence of the external cause; Y99.0 Civilian activity done for income or pay
CPT/HCPCS: 29515; 73590; 76000; 80048; 85025; 94150; C1713; C1769; J0131; J0690; J1100; J1580; J1650; J2175; J2250; J2270; J2405; J3010; J3370; J3480; J7050